=== PATIENT | female | born 1975 | race Caucasian/White ===

== ENCOUNTER 2016-06-02 22:23 | Emergency (ER) | payer SELFPAY ==
[~2016-06-02] VITALS: Ht 170.2 cm; Wt 85.0 kg
[2016-06-02 22:25] VITALS: BP 139/82; PULSE 83; RESP 14; TEMP 99; O2SAT 100
--- NOTE | 2016-06-02 22:47 | PD ---
HPI Chief Complaint: Injury Time Seen by Provider: 22:40 Travel History International Travel<30 days: No Contact w/Intl Traveler<30days: No Traveled to known affect area: No History of Present Illness HPI This is a 40-year-old female presents for evaluation of left knee pain. Just prior to arrival the patient reports that she stepped out of her car and twisted her left knee. She now has left knee pain which is aching and constant and worse with movement. Pain seems to be primarily on the medial and posterior aspect of left knee. She reports a remote history of left knee ACL injury and she does note that she never required surgery for this. She has no other complaints. [facility] Social History Alcohol Use: No Tobacco Use: No Allergies-Medications (Allergen,Severity, Reaction): Coded Allergies: No Known Allergies (Unverified , 06/02/16) Review of Systems Musculoskeletal: Positive: Limited ROM, Pain Skin: Positive Other (denies open wounds) Physical Exam Narrative GENERAL: Well-developed well-nourished female in no acute distress SKIN: Warm and dry. CARDIOVASCULAR: Regular rate and rhythm. No murmur appreciated. RESPIRATORY: No accessory muscle use. Clear to auscultation. Breath sounds equal bilaterally. MUSCULOSKELETAL: There is tenderness to palpation to the medial left knee joint. There is no current joint effusion. There is a somewhat positive anterior drawer sign on the left knee. There is no obvious laxity on valgus or varus stress. The patient maintains full extension of the left knee. She is able to flex actively to approximately 75 with some pain. Data Data Last Documented VS Vital Signs Date Time Temp Pulse Resp B/P Pulse Ox O2 Delivery O2 Flow Rate FiO2 06/02/16 22:34 Room Air 06/02/16 22:25 99.0 83 14 139/82 100 Orders Knee, Complete (4vws) (06/02/16 ) Crutches (06/02/16 23:02) Splint Or Brace Apply/Monitor (06/02/16 23:02) MDM Medical Decision Making Medical Screen Exam Complete: Yes Emergency Medical Condition: Yes Medical Record Reviewed: Yes Differential Diagnosis Ligamentous disruption, meniscal disruption, proximal fibular fracture, tibial plateau fracture, strain, patellar dislocation Narrative Course This is a 40-year-old female with very broad history of left knee ACL injury which did not require repair. She reports that this evening just prior to arrival she stepped out of her car and twisted her left knee. She notes pain in the left knee and her left knee feels "unstable" when she attempts to walk. On examination she has tenderness to palpation to the medial and posterior left knee joint, there is no current effusion, she has pain with flexion and extension and limited range of motion past 60 flexion. She has a somewhat positive anterior drawer sign suggesting ACL injury which could be acute or chronic. Given her history and symptoms it is warranted to have outpatient MRI imaging and she is encouraged to follow-up with primary care for this endeavor. X-ray imaging today's negative for fracture. She is being discharged with crutches and a knee immobilizer. Diagnosis Primary Impression: Internal derangement of left knee Referrals: Primary Care Physician Departure Forms: Tests/Procedures, Work Release Enter return to work date: Jun 06, 2016 Additional Instructions: Crutches and knee immobilizer as needed. Take [id number] Tylenol or ibuprofen as needed. Likely he will develop swelling in the left knee over the next 24-48 hours. Apply ice pack several times a day 15 minutes at a time to the affected area. As discussed, follow-up next week with primary care physician, likely MRI imaging is warranted. Return for any emergent medical conditions. Med/Other Pt SpecificInfo: Orthopedic Instructions Disposition: 01 DISCHARGE HOME Condition: Stable Markell Morrison Jun 02, 2016 22:47
--- NOTE | 2016-06-02 22:57 | RADRPT ---
EXAM DATE/TIME: 06/02/2016 22:49 [facility] COMPARISON: No previous studies available for comparison. INDICATIONS : left knee pain, twisted MEDICAL HISTORY : None. SURGICAL HISTORY : None. ENCOUNTER: Initial ACUITY: 1 day PAIN SCORE: 6/10 LOCATION: Left Knee FINDINGS: Four view examination of the left knee demonstrates no evidence of fracture or dislocation. Bony min eralization is normal. The articular surfaces are intact. The suprapatellar soft tissues have a nor mal configuration. CONCLUSION: Unremarkable examination of the left knee. Brett Monahan Jr., MD on June 02, 2016 at 22:54 Board Certified Radiologist. This report was verified electronically.
== END 2016-06-03 00:15 | disposition home or self-care (01) ==
LOC: NEPK 22:23
DX: M23.92 Unspecified internal derangement of left knee (principal); X50.1XXA Overexertion from prolonged static or awkward postures, initial encounter; Y93.89 Activity, other specified
CPT/HCPCS: 73564; 99283; E0113; L1830